=== PATIENT | male | born 1985 | race American Indian/Alaskan Native ===

== ENCOUNTER 2020-01-05 13:01 | Emergency (ER) | payer MEDICAID ==
[2020-01-05] MEDS ORDERED: Bacitracin Oint 1 GM U/D Packet TOP ONE (13:30)
[2020-01-05] MEDS ORDERED: Lidocaine 1% 30 ML SDV INJECT ONE (13:30)
--- NOTE | 2020-01-05 13:30 | EDM.PDOC ---
ED HPI GENERAL MEDICAL PROBLEM - General Chief Complaint: Laceration Stated Complaint: CUT HAND Time Seen by Provider: 01/05/20 13:30 Source of Information: Reports: Patient, RN, RN Notes Reviewed History Limitations: Reports: No Limitations - History of Present Illness INITIAL COMMENTS - FREE TEXT/NARRATIVE: Pt was cutting metal and lacerated his right palm just prior to arrival. Denies any other injury. Tetanus vaccine >10yrs ago per pt. Onset: Today, Sudden Duration: Constant Location: Reports: Upper Extremity, Right Quality: Reports: Ache Severity: Mild Improves with: Reports: None Worsens with: Reports: None Associated Symptoms: Reports: No Other Symptoms Right Hand Pain Score (Numeric/FACES): 5 - Related Data Allergies Allergy/AdvReac Type Severity Reaction Status Date / Time No Known Allergies Allergy Verified 01/05/20 13:15 Home Meds: Home Meds Acetaminophen [Tylenol Extra Strength] 500 mg PO ASDIRECTED PRN 12/08/17 [History] Ibuprofen 600 mg PO ASDIRECTED PRN 12/08/17 [History] Past Medical History - Past Health History Medical/Surgical History: Denies Medical/Surgical History HEENT History: Reports: None Cardiovascular History: Reports: None Respiratory History: Reports: None Gastrointestinal History: Reports: None Genitourinary History: Reports: None Musculoskeletal History: Reports: None Neurological History: Reports: None Psychiatric History: Reports: None Endocrine/Metabolic History: Reports: None Hematologic History: Reports: None Immunologic History: Reports: None Oncologic (Cancer) History: Reports: None Dermatologic History: Reports: None - Infectious Disease History Infectious Disease History: Reports: Chicken Pox - Past Surgical History Head Surgeries/Procedures: Reports: None Social & Family History - Family History Family Medical History: Noncontributory - Tobacco Use Smoking Status *Q: Current Every Day Smoker Years of Tobacco use: 10 Packs/Tins Daily: 1 - Caffeine Use Caffeine Use: Reports: None - Alcohol Use Days Per Week of Alcohol Use: 2 Number of Drinks Per Day: 6 Total Drinks Per Week: 12 - Recreational Drug Use Recreational Drug Use: No - Living Situation & Occupation Living situation: Reports: with Family Occupation: Employed ED ROS GENERAL - Review of Systems Review Of Systems: Comprehensive ROS is negative, except as noted in HPI. ED EXAM, SKIN/RASH Exam: See Below Exam Limited By: No Limitations General Appearance: Alert, WD/WN, No Apparent Distress Respiratory/Chest: No Respiratory Distress Cardiovascular: Normal Peripheral Pulses Extremities: Normal Range of Motion, Normal Capillary Refill, Other (Right palm overlying 3rd MCPJ has a 1.2cm linear laceration to depth of subcutaneous fat, no active bleeding, no FB.) Neurological: Alert, Oriented Psychiatric: Normal Mood Skin: Warm, Dry ED SKIN PROCEDURES - Laceration/Wound Repair Right Ventral Hand Appearance: Subcutaneous, Linear, Clean Distal NVT: Neuro & Vascular Intact, No Tendon Injury Anesthetic Type: Local Local Anesthesia - Lidocaine (Xylocaine): 1% Plain Local Anesthetic Volume: 4cc Skin Prep: Chlorhexidine (Hibiciens), Saline, Sterile Drape Saline Irrigation (cc's): 250 Exploration/Debridement/Repair: Wound Explored, In a Bloodless Field, Explored to Base, Minimal Debridement, Minimally Undermined Closed with: Sutures Lac/Wound length In cm: 1.3 Suture Size: 3-0 # of Sutures: 4 Suture Type: Nylon, Interrupted Drain Placement: No Sterile Dressing Applied: Nurse Tetanus Status Addressed: Yes Complications: No Course - Vital Signs Last Recorded V/S: Last Vital Signs Temp 97.4 F 01/05/20 13:11 Pulse 64 01/05/20 13:11 Resp 16 01/05/20 13:11 BP 159/105 H 01/05/20 13:11 Pulse Ox 100 01/05/20 13:11 - Orders/Labs/Meds Orders: Active Orders 24 hr Category Date Time Status Vaccines to be Administered [RC] PER UNIT ROUTINE Care 01/05/20 13:31 Active Meds: Medications Discontinued Medications Generic Name Dose Route Start Last Admin Trade Name Jorge PRN Reason Stop Dose Admin Bacitracin 1 dose 01/05/20 13:30 01/05/20 13:41 Bacitracin Oint 1 Gm TOP 01/05/20 13:31 1 dose ONETIME ONE Administration Diphtheria/Tetanus/Acell Pertussis 0.5 ml 01/05/20 13:31 01/05/20 13:41 Adacel IM 01/05/20 13:32 0.5 ml .ONCE ONE Administration Lidocaine HCl 30 ml 01/05/20 13:30 01/05/20 13:41 Xylocaine-Mpf 1% INJECT 01/05/20 13:31 30 ml ONETIME ONE Administration Departure - Departure Time of Disposition: 14:16 Disposition: Home, Self-Care 01 Condition: Good Clinical Impression: Laceration of right hand with complication Qualifiers: Encounter type: initial encounter Qualified Code(s): S61.411A - Laceration without foreign body of right hand, initial encounter - Discharge Information *PRESCRIPTION DRUG MONITORING PROGRAM REVIEWED*: Not Applicable *COPY OF PRESCRIPTION DRUG MONITORING REPORT IN PATIENT JERMAINE: Not Applicable Instructions: Sutured Wound Care Forms: ED Department Discharge Additional Instructions: Follow up in clinic in 7 to 10 days for suture removal. Sepsis Event Note (ED) - Evaluation Sepsis Screening Result: No Definite Risk - Focused Exam Vital Signs: Vital Signs Temp Pulse Resp BP Pulse Ox 01/05/20 13:11 97.4 F 64 16 159/105 H 100 - My Orders Last 24 Hours: My Active Orders 01/05/20 13:31 Vaccines to be Administered [RC] PER UNIT ROUTINE - Assessment/Plan Last 24 Hours: My Active Orders 01/05/20 13:31 Vaccines to be Administered [RC] PER UNIT ROUTINE
[2020-01-05] MEDS ORDERED: Diphtheria,Pertussis(Acell),Tetanus Vaccine 0.5 ML SDV IM ONE (13:31)
== END 2020-01-05 14:20 | disposition home or self-care (01) ==
LOC: DL.ED 13:01
DX: S61.411A Laceration without foreign body of right hand, initial encounter (principal); F17.210 Nicotine dependence, cigarettes, uncomplicated; Z23 Encounter for immunization; W26.8XXA Contact with other sharp object(s), not elsewhere classified, initial encounter
CPT/HCPCS: 12001; 90471; 90715; 99282; J2001

== ENCOUNTER 2022-03-25 13:44 | Emergency (ER) | payer MEDICAID, OTHER ==
[2022-03-25] MEDS ORDERED: Acetaminophen/HYDROcodone 325-10 MG Tab PO ONE (13:45)
[2022-03-25] MEDS ORDERED: Acetaminophen/HYDROcodone 325-10 MG Tab ONE (14:32)
== END 2022-03-25 14:38 | disposition home or self-care (01) ==
LOC: DL.ED 13:44
DX: S22.31XA Fracture of one rib, right side, initial encounter for closed fracture (principal); W10.8XXA Fall (on) (from) other stairs and steps, initial encounter
CPT/HCPCS: 71101; 99283; A9270